=== PATIENT | female | born 1990 | race Asian ===

== ENCOUNTER 2020-11-07 15:55 | Emergency (ER) | payer OTHER ==
[~2020-11-07] VITALS: Ht 162.6 cm; Wt 65.0 kg
[2020-11-07 16:45] VITALS: BP 120/67
[2020-11-07] MEDS ORDERED: fentaNYL PF VIAL 100 MCG/2 ML VIAL IM ONE (17:00)
--- NOTE | 2020-11-07 17:14 | PHYS DOC ---
Past Medical History Past Surgical History: No Surgical History (BECCA OROPEZA) General Adult EDM: Chief Complaint: OTHER COMPLAINTS HPI: HPI: Patient is a 30 year old female who presents with 2-hour history of throat pain. Patient is not able to speak very much, so her is at bedside to assist in providing history. Per , patient was eating fish with rice and felt like she swallowed a fishbone. She had minimal pain at that time, but has worsened since she feels like she swallowed the bone. She is now having difficulty swallowing due to pain and has some left-sided swelling to her neck. She denies having any blood in her saliva. She has no other complaints at this time. (BECCA OROPEZA) Review of Systems: Review of Systems: Constitutional: Denies fever or chills. HENT: See HPI Respiratory: Denies cough or shortness of breath. Cardiovascular: Denies chest pain or edema. GI: Denies abdominal pain, nausea, vomiting, bloody stools or diarrhea. (BECCA OROPEZA) Heart Score: C/O Chest Pain: No (BECCA OROPEZA) Current Medications: Current Medications Medications (Trade) Dose Ordered Sig/Marya Start Time Stop Time Status Last Admin Dose Admin Fentanyl Citrate (Fentanyl 2ml Vial) 50 mcg 1X ONCE 11/07/20 17:00 11/07/20 17:01 DC 11/07/20 17:02 50 MCG (BECCA OROPEZA) Allergies: Allergies: Allergies Coded Allergies Type Severity Reaction Last Updated Verified No Known Drug Allergies 11/07/20 No (BECCA OROPEZA) Physical Exam: PE: Constitutional: Patient is sitting upright in bed, with her neck hyperextended. Well developed, well nourished, non-toxic appearance. HENT: Normocephalic, atraumatic, bilateral external ears normal, oropharynx moist, no oral exudates, no foreign body visualized in oropharynx, tonsils 1+ bilaterally, nose normal. Eyes: Conjunctiva normal, no discharge. Neck: Neck and submandibular region are tender to palpation on left side with so me mild swelling. No tracheal deviation. Patient is unwilling to move her neck secondary to pain in her throat. Cardiovascular: Heart rate regular rhythm, no murmur. Lungs & Thorax: Bilateral breath sounds clear to auscultation. Skin: Warm, dry, no erythema, no rash. (BECCA OROPEZA) Current Patient Data: Vital Signs: Vital Signs Date Time Temp Pulse Resp B/P (MAP) Pulse Ox O2 Delivery O2 Flow Rate FiO2 11/07/20 17:02 Room Air 11/07/20 16:45 98.5 80 17 120/67 (84) 100 98.5 (BECCA OROPEZA) Radiology/Procedures: Radiology/Procedures: PROCEDURE: CT SOFT TISSUE NECK WO CONTRST Examination: CT neck without IV contrast. History: Fishbone. Comparison: None. Findings: The nasopharynx, oropharynx and hypopharynx are clear. No mucosal wall thickening. Vocal cords are symmetric. No pneumomediastinum. The airway is unremarkable in course and caliber. Parotid, submandibular, and thyroid glands are unremarkable. No pathologically enlarged cervical chain adenopathy. The vasculature is incompletely evaluated on this noncontrast exam. There is moderate mucosal thickening involving the frontal, maxillary, ethmoid and to a lesser extent the sphenoid sinuses and mastoid air cells are clear. Subtle nonspecific stranding in the upper anterior mediastinal fat, suggestive of residual thymus. Visualized lung apices are clear. Dentition is within normal limits. IMPRESSION: 1. No imaging evidence to suggest retained foreign body within the visualized aerodigestive tract. Please note that some fish bones could be occult on imaging. 2. Moderate sinusitis, as above. PRQS compliance statement - One or more of the following individualized dose reduction techniques were utilized for this study: 1. Automated exposure control 2. Adjustment of the mA and/or kV according to patient size 3. Use of iterative reconstruction technique Electronically signed by: David Apple DO (11/07/2020 5:24 PM) [id number] (BECCA OROPEZA) Course & Med Decision Making: Course & Med Decision Making Pertinent Labs and Imaging studies reviewed. (See chart for details) Radiology was consulted on best imaging study to order to evaluate placement of presumed swallowed fishbone. Soft tissue neck CT was advised. No fishbone was visualized in imaging, however it is advised that some fish bones are small and can be occult. Patient understands to limit her diet to soft foods until she can tolerate swallowing her normal diet. They were provided with ENT referral in case her symptoms do not improve. They understand and agree with the discharge plan. (BECCA OROPEZA) Dragon Disclaimer: Dragon Disclaimer: This electronic medical record was generated, in whole or in part, using a voice recognition dictation system. (BECCA OROPEZA) Departure Departure Impression: Primary Impression: Esophageal abrasion Qualified Codes: S27.818A - Other injury of esophagus (thoracic part), initial encounter Disposition: HOME / SELF CARE / HOMELESS Condition: STABLE Referrals: UNKNOWN PCP NAME (PCP) MARILOU BARRY MD Patient Instructions: Swallowed Foreign Body, Adult, [id number] Additional Instructions: Your work-up today, no fish bone was seen retained in the throat or neck. There is also no evidence of esophageal perforation or holes. You should limit your diet to soft, easily swallow mobile foods until your pain is minimized, at which time you may resume your normal diet. If your symptoms do not improve in the next few days, please call the ENT doctor at the phone number provided to you to set up an appointment for further evaluation. Attending Signature I have participated in the care of this patient and I have reviewed and agree with all pertinent clinical information above including history, exam, and recommendations. (VAL UNDERWOOD DO) BECCA OROPEZA Nov 07, 2020 17:14 VAL UNDERWOOD DO Nov 07, 2020 17:57
--- NOTE | 2020-11-07 17:26 | RAD ---
Examination: CT neck without IV contrast. History: Fishbone. Comparison: None. Findings: The nasopharynx, oropharynx and hypopharynx are clear. No mucosal wall thickening. Vocal cords are sy mmetric. No pneumomediastinum. The airway is unremarkable in course and caliber. Parotid, submandibul ar, and thyroid glands are unremarkable. No pathologically enlarged cervical chain adenopathy. The va sculature is incompletely evaluated on this noncontrast exam. There is moderate mucosal thickening in volving the frontal, maxillary, ethmoid and to a lesser extent the sphenoid sinuses and mastoid air c ells are clear. Subtle nonspecific stranding in the upper anterior mediastinal fat, suggestive of res idual thymus. Visualized lung apices are clear. Dentition is within normal limits. IMPRESSION: 1. No imaging evidence to suggest retained foreign body within the visualized aerodigestive tract. Pl ease note that some fish bones could be occult on imaging. 2. Moderate sinusitis, as above. PRQS compliance statement - One or more of the following individualized dose reduction techniques wer e utilized for this study: 1. Automated exposure control 2. Adjustment of the mA and/or kV according to patient size 3. Use of iterative reconstruction technique Electronically signed by: David Apple DO (11/07/2020 5:24 PM) [id number]
== END 2020-11-07 17:48 | disposition home or self-care (01) ==
LOC: ER 15:55
DX: S27.818A Other injury of esophagus (thoracic part), initial encounter (principal); R07.0 Pain in throat; X58.XXXA Exposure to other specified factors, initial encounter; Y93.89 Activity, other specified; Y92.89 Other specified places as the place of occurrence of the external cause; Y99.8 Other external cause status
CPT/HCPCS: 70490; 96372; 99284; J3010